=== PATIENT | female | born 1970 | race Caucasian/White ===

== ENCOUNTER 2017-02-17 12:05 | Inpatient (IN) | payer MEDICAID ==
[~2017-02-17] VITALS: Ht 167.6 cm; Wt 75.9 kg
[2017-02-17] MEDS ORDERED: ASPI-1159 PO (12:49)
[2017-02-17] MEDS ORDERED: LIP40 PO (12:49)
[2017-02-17] MEDS ORDERED: SODIUM CHLORIDE 0.9% 1,000 ML IV ONE (13:42)
[2017-02-17] MEDS ORDERED: LORAZEPAM 1MG TABLET PO ONE (14:15)
[2017-02-17 15:26] LABS: BASOPHILS % 0.9 % (0.0-2.0); HEMATOCRIT. 34.4 % (36.0-48.0); HEMOGLOBIN. 11.1 g/dL (12.0-16.0); LYMPHOCYTES % 26.6 % (20.0-50.0); MEAN CORPUSCULAR HEMOGLOBIN 25.2 pg (28.0-32.0); MEAN CORPUSCULAR VOLUME 77.8 fL (81.0-99.0); MEAN PLATELET VOLUME 8.4 fl (7.4-10.4); MONOCYTES % 8.6 % (2.0-8.0); NEUTROPHILS % 61.9 % (40.0-76.0); PLATELET 277 x1000/uL (130-400); RED BLOOD CELL COUNT 4.42 mill/uL (4.2-5.4); RED CELL DISTRIBUTION WIDTH 16.2 % (11.6-14.6)
[2017-02-17 15:33] LABS: CARBON DIOXIDE 25 mEq/L (21-32); CHLORIDE 107 mEq/L (98-107)
[2017-02-17 15:39] LABS: CREATINE KINASE MB FRACTION 2.7 ng/mL (0.5-3.6); TROPONIN I < 0.02 ng/mL (0.00-0.04)
[2017-02-17] MEDS ORDERED: ONDANSETRON HCL 4MG/2ML VIAL IV ONE (15:45)
[2017-02-17 15:50] LABS: PROTHROMBIN TIME 10.8 sec (9.4-11.6)
[2017-02-17] MEDS ORDERED: CLONIDINE 0.1MG TABLET PO PRN ×2 (16:08→17:15)
[2017-02-17] MEDS ORDERED: MAGNESIUM/ALUMINUM HYDROXIDE/SIMETHICONE 30ML UDC PO PRN (17:15)
[2017-02-17] MEDS ORDERED: ACETAMINOPHEN 325MG TABLET PO PRN (17:15)
[2017-02-17] MEDS ORDERED: ONDANSETRON HCL 4MG/2ML VIAL IV PRN (17:15)
[2017-02-17] MEDS ORDERED: IPRATROPIUM/ALBUTEROL 0.5-3(2.5)MG/3ML NEB INH PRN (17:15)
[2017-02-17 17:38] LABS: *AMPHETAMINES SCREEN URINE NEGATIVE (NEGATIVE); *BARBITURATES SCREEN URINE NEGATIVE (NEGATIVE); *BENZODIAZEPINES SCREEN URINE NEGATIVE (NEGATIVE); *COCAINE SCREEN URINE NEGATIVE (NEGATIVE); CANNABINOID URINE SCREEN NEGATIVE (NEGATIVE); METHADONE URINE SCREEN NEGATIVE (NEGATIVE); OPIATES URINE SCREEN NEGATIVE (NEGATIVE); PHENCYCLIDINE URINE SCREEN NEGATIVE (NEGATIVE)
[2017-02-17] MEDS: DIPHENHYDRAMINE 25MG CAPSULE PO PRN (19:41)
[2017-02-17] MEDS: HYDROCODONE/ACETAMINOPHEN 5/325MG TABLET PO PRN (19:42)
[2017-02-17 20:00] VITALS: BP_SYST 137; BP_SYST 142; BP_SYST 147; BP_DIAS 80; BP_DIAS 81; BP_DIAS 88
[2017-02-17] MEDS: AMLODIPINE 2.5MG TABLET PO SCH (20:13)
[2017-02-17] MEDS: SODIUM CHLORIDE 0.9% 1,000 ML IV SCH (20:14)
[2017-02-17] MEDS: DIPHENHYDRAMINE HCL/ZINC ACET 28 GM CREAM TOP PRN (21:19)
[2017-02-18] VITALS (7 sets, daily range): BP systolic 113–145; BP diastolic 56–94
[2017-02-18] MEDS: HYDROCODONE/ACETAMINOPHEN 5/325MG TABLET PO PRN ×5 (03:00→20:29)
[2017-02-18 05:57] LABS: CARBON DIOXIDE 26 mEq/L (21-32); CHLORIDE 108 mEq/L (98-107); CREATINE KINASE MB FRACTION 1.5 ng/mL (0.5-3.6); HDL CHOLESTEROL 52 mg/dL (40-59); TROPONIN I < 0.02 ng/mL (0.00-0.04)
[2017-02-18 06:02] LABS: CREATINE KINASE 192 IU/L (26-192); LDL CHOLESTEROL 72 mg/dL (5-100)
[2017-02-18 06:03] LABS: BASOPHILS % 0.7 % (0.0-2.0); EOSINOPHILS % 3.8 % (0.0-5.0); HEMOGLOBIN. 10.4 g/dL (12.0-16.0); LYMPHOCYTES % 42.8 % (20.0-50.0); MEAN CORPUSCULAR HEMOGLOBIN 25.5 pg (28.0-32.0); MEAN CORPUSCULAR VOLUME 78.4 fL (81.0-99.0); MEAN PLATELET VOLUME 8.8 fl (7.4-10.4); MONOCYTES % 8.9 % (2.0-8.0); NEUTROPHILS % 43.8 % (40.0-76.0); PLATELET 237 x1000/uL (130-400); RED BLOOD CELL COUNT 4.09 mill/uL (4.2-5.4); RED CELL DISTRIBUTION WIDTH 16.8 % (11.6-14.6)
[2017-02-18] MEDS: AMLODIPINE 2.5MG TABLET PO SCH ×2 (08:00→20:29)
[2017-02-18] MEDS: SODIUM CHLORIDE 0.9% 1,000 ML IV SCH ×2 (08:23→20:28)
[2017-02-18] MEDS: DIPHENHYDRAMINE 25MG CAPSULE PO PRN ×2 (08:23→20:28)
[2017-02-18] MEDS ORDERED: POTASSIUM CHLORIDE 20MEQ TABLET SR PO NR (12:15)
[2017-02-18] MEDS: MECLIZINE 25MG TABLET PO PRN ×2 (13:11→20:29)
[2017-02-18 14:59] LABS: TOTAL IRON BINDING CAPACITY 429 ug/dL (250-450)
[2017-02-18] MEDS: DIPHENHYDRAMINE HCL/ZINC ACET 28 GM CREAM TOP PRN (20:33)
[2017-02-19] VITALS (8 sets, daily range): BP systolic 106–143; BP diastolic 64–96
[2017-02-19 06:05] LABS: BASOPHILS % 0.9 % (0.0-2.0); EOSINOPHILS % 5.6 % (0.0-5.0); HEMATOCRIT. 35.5 % (36.0-48.0); HEMOGLOBIN. 11.3 g/dL (12.0-16.0); LYMPHOCYTES % 42.2 % (20.0-50.0); MEAN CORPUSCULAR HEMOGLOBIN 25.4 pg (28.0-32.0); MEAN CORPUSCULAR VOLUME 79.7 fL (81.0-99.0); MEAN PLATELET VOLUME 8.9 fl (7.4-10.4); MONOCYTES % 8.1 % (2.0-8.0); NEUTROPHILS % 43.2 % (40.0-76.0); PLATELET 257 x1000/uL (130-400); RED BLOOD CELL COUNT 4.46 mill/uL (4.2-5.4); RED CELL DISTRIBUTION WIDTH 16.6 % (11.6-14.6)
[2017-02-19 06:30] LABS: CHLORIDE 104 mEq/L (98-107)
[2017-02-19 06:43] LABS: CARBON DIOXIDE 26 mEq/L (21-32); TROPONIN I < 0.02 ng/mL (0.00-0.04)
[2017-02-19] MEDS: AMLODIPINE 2.5MG TABLET PO SCH ×2 (09:00→21:00)
[2017-02-19] MEDS: SODIUM CHLORIDE 0.9% 1,000 ML IV SCH ×2 (09:22→21:37)
[2017-02-19] MEDS: HYDROCODONE/ACETAMINOPHEN 5/325MG TABLET PO PRN ×3 (10:13→22:40)
[2017-02-19] MEDS: DIPHENHYDRAMINE 25MG CAPSULE PO PRN ×2 (10:13→18:05)
[2017-02-19] MEDS: MECLIZINE 25MG TABLET PO PRN ×2 (12:09→21:52)
[2017-02-20] VITALS: BP 137/88
[2017-02-20 04:00] VITALS: BP 140/95
[2017-02-20] MEDS: DIPHENHYDRAMINE HCL/ZINC ACET 28 GM CREAM TOP PRN (05:03)
[2017-02-20] MEDS: HYDROCODONE/ACETAMINOPHEN 5/325MG TABLET PO PRN ×3 (05:05→19:53)
[2017-02-20] MEDS: DIPHENHYDRAMINE 25MG CAPSULE PO PRN ×3 (05:05→19:53)
[2017-02-20 08:00] VITALS: BP 109/70
[2017-02-20] MEDS: OMEPRAZOLE 20MG CAPSULE EXTENDED RELEASE PO SCH (08:36)
[2017-02-20] MEDS: AMLODIPINE 2.5MG TABLET PO SCH ×2 (09:00→20:34)
[2017-02-20 11:09] VITALS: BP 100/54
[2017-02-20 16:00] VITALS: BP_SYST 110; BP_SYST 118; BP_SYST 130; BP_DIAS 66; BP_DIAS 71; BP_DIAS 83
[2017-02-20] MEDS: SODIUM CHLORIDE 0.9% 1,000 ML IV SCH ×2 (16:58→21:30)
[2017-02-20 20:00] VITALS: BP_SYST 118; BP_SYST 123; BP_SYST 128; BP_DIAS 68; BP_DIAS 76; BP_DIAS 81
[2017-02-20] MEDS: MECLIZINE 25MG TABLET PO PRN (21:32)
[2017-02-21] VITALS: BP 104/65
[2017-02-21] MEDS: HYDROCODONE/ACETAMINOPHEN 5/325MG TABLET PO PRN ×3 (00:24→13:37)
[2017-02-21 04:00] VITALS: BP 122/86
[2017-02-21] MEDS: SODIUM CHLORIDE 0.9% 1,000 ML IV SCH (06:00)
[2017-02-21] MEDS: OMEPRAZOLE 20MG CAPSULE EXTENDED RELEASE PO SCH (07:53)
[2017-02-21 08:00] VITALS: BP 120/78
[2017-02-21] MEDS: DIPHENHYDRAMINE 25MG CAPSULE PO PRN (08:00)
[2017-02-21] MEDS: MECLIZINE 25MG TABLET PO PRN (08:46)
[2017-02-21] MEDS: DIPHENHYDRAMINE HCL/ZINC ACET 28 GM CREAM TOP PRN (08:46)
[2017-02-21 12:18] VITALS: BP 145/90
[2017-02-21] MEDS: AMLODIPINE 2.5MG TABLET PO SCH (12:18)
[2017-02-21 15:10] VITALS: BP 143/82
== END 2017-02-21 17:40 | disposition home or self-care (01) | DRG 253 ==
LOC: EDBEDREQ 13:46 → ER 13:55 → 7WST 15:39 → EDBEDREQ 15:41 → ENRESERV 16:27 → CANRESERV 16:27 → ENRESERV 16:46
PROVIDERS: ADMIT Internal Medicine; ATTEND Internal Medicine
DX: K92.2 Gastrointestinal hemorrhage, unspecified (principal); G45.9 Transient cerebral ischemic attack, unspecified; I10 Essential (primary) hypertension; Z80.8 Family history of malignant neoplasm of other organs or systems; E78.5 Hyperlipidemia, unspecified; E87.6 Hypokalemia; F41.1 Generalized anxiety disorder; K64.9 Unspecified hemorrhoids; D50.9 Iron deficiency anemia, unspecified; R21 Rash and other nonspecific skin eruption; E78.00 Pure hypercholesterolemia, unspecified; M51.36 Other intervertebral disc degeneration, lumbar region; F48.8 Other specified nonpsychotic mental disorders; M47.9 Spondylosis, unspecified; K59.00 Constipation, unspecified; M51.9 Unspecified thoracic, thoracolumbar and lumbosacral intervertebral disc disorder; E83.51 Hypocalcemia; I95.1 Orthostatic hypotension; K52.9 Noninfective gastroenteritis and colitis, unspecified; F32.9 Major depressive disorder, single episode, unspecified; G89.29 Other chronic pain; M54.5 Low back pain; Z79.899 Other long term (current) drug therapy; Z79.82 Long term (current) use of aspirin; Z80.3 Family history of malignant neoplasm of breast
CPT/HCPCS: 36415; 70450; 71010; 80048; 80053; 80061; 80305; 81025; 82270; 82550; 82553; 82728; 83540; 83550; 83735; 83880; 84443; 84484; 85025; 85379; 85610; 85730; 87015; 87045; 87427; 87449; 93005; 93306; 93880; 93970; 96361; 96374; 97162; 99285; J2405; J7030; J7620; J8597; Q0163

== ENCOUNTER 2018-12-29 02:51 | Emergency (ER) | payer MEDICAID ==
[~2018-12-29] VITALS: Ht 167.6 cm; Wt 91.0 kg
[~2018-12-29 02:51] MED LIST: ASPI-1393 PO; LIP40 PO
[2018-12-29 04:25] LABS: BASOPHILS % 0.9 % (0.0-2.0); EOSINOPHILS % 2.5 % (0.0-5.0); HEMATOCRIT. 31.9 % (36.0-48.0); HEMOGLOBIN. 10.4 g/dL (12.0-16.0); LYMPHOCYTES % 29.3 % (20.0-50.0); MEAN CORPUSCULAR HEMOGLOBIN 24.4 pg (28.0-32.0); MEAN CORPUSCULAR VOLUME 74.9 fL (81.0-99.0); MEAN PLATELET VOLUME 8.2 fl (7.4-10.4); MONOCYTES % 7.1 % (2.0-8.0); NEUTROPHILS % 60.2 % (40.0-76.0); PLATELET 271 x1000/uL (130-400); RED BLOOD CELL COUNT 4.25 mill/uL (4.2-5.4); RED CELL DISTRIBUTION WIDTH 17.6 % (11.6-14.6)
[2018-12-29 04:31] LABS: CHLORIDE 110 mEq/L (98-107)
[2018-12-29 04:53] VITALS: BP 147/90
[2018-12-29 04:58] LABS: CLARITY URINE CLEAR (CLEAR); COLOR URINE YELLOW (YELLOW); KETONES URINE NEGATIVE (NEGATIVE); LEUKOCYTE ESTERASE URINE NEGATIVE (NEGATIVE); NITRITE URINE NEGATIVE (NEGATIVE); OCCULT BLOOD URINE NEGATIVE (NEGATIVE); PROTEIN URINE NEGATIVE (NEGATIVE); SPECIFIC GRAVITY URINE 1.008 (1.005-1.030); UROBILINOGEN URINE 0.2 E.U./dL (0.2-1.0)
[2018-12-29] MEDS ORDERED: POTASSIUM BICARB/CIT ACID 25 MEQ TABLET.EFF PO ONE (05:15)
[2018-12-29 05:16] LABS: *AMPHETAMINES SCREEN URINE NEGATIVE (NEGATIVE); CANNABINOID URINE SCREEN NEGATIVE (NEGATIVE); PHENCYCLIDINE URINE SCREEN NEGATIVE (NEGATIVE)
[2018-12-29 05:17] LABS: *BARBITURATES SCREEN URINE NEGATIVE (NEGATIVE); *BENZODIAZEPINES SCREEN URINE NEGATIVE (NEGATIVE); *COCAINE SCREEN URINE NEGATIVE (NEGATIVE); METHADONE URINE SCREEN NEGATIVE (NEGATIVE)
[2018-12-29 05:18] LABS: OPIATES URINE SCREEN PRESUMTIVE POSITIVE (NEGATIVE)
[2018-12-29] MEDS ORDERED: DOXY150T MT (12:46)
[2018-12-29] MEDS ORDERED: ALPR1TAB2 PO (12:46)
[2018-12-29] MEDS ORDERED: DULO30CA51 PO (12:46)
[2018-12-29] MEDS ORDERED: GABA-531 PO (12:46)
[2018-12-29] MEDS ORDERED: TOP100 PO (12:46)
[2018-12-29] MEDS ORDERED: DICL50TA9 PO (12:46)
[2018-12-29] MEDS ORDERED: TRAM50TA3 PO (12:46)
[2018-12-29] MEDS ORDERED: LIP40 PO (12:46)
[2018-12-29] MEDS ORDERED: TRAZ-251 PO (12:49)
== END 2018-12-29 05:58 | disposition home or self-care (01) ==
LOC: ER 02:51
DX: R55 Syncope and collapse (principal); R53.1 Weakness; E87.6 Hypokalemia; I10 Essential (primary) hypertension; F41.8 Other specified anxiety disorders; G89.29 Other chronic pain; Z79.899 Other long term (current) drug therapy
CPT/HCPCS: 36415; 71045; 80305; 81025; 84484; 93005; 99284

== ENCOUNTER 2018-12-29 06:58 | Inpatient (IN) | payer MEDICAID ==
[~2018-12-29] VITALS: Ht 167.6 cm; Wt 86.2 kg
[2018-12-29 09:21] LABS: CHLORIDE 108 mEq/L (98-107)
[2018-12-29 09:28] LABS: BASOPHILS % 0.6 % (0.0-2.0); EOSINOPHILS % 2.3 % (0.0-5.0); HEMATOCRIT. 33.2 % (36.0-48.0); HEMOGLOBIN. 10.6 g/dL (12.0-16.0); LYMPHOCYTES % 29.8 % (20.0-50.0); MEAN CORPUSCULAR HEMOGLOBIN 24.1 pg (28.0-32.0); MEAN CORPUSCULAR VOLUME 75.1 fL (81.0-99.0); MEAN PLATELET VOLUME 8.4 fl (7.4-10.4); MONOCYTES % 5.9 % (2.0-8.0); NEUTROPHILS % 61.4 % (40.0-76.0); PLATELET 268 x1000/uL (130-400); RED BLOOD CELL COUNT 4.42 mill/uL (4.2-5.4); RED CELL DISTRIBUTION WIDTH 17.5 % (11.6-14.6)
[2018-12-29] MEDS ORDERED: MAGNESIUM/ALUMINUM HYDROXIDE/SIMETHICONE 30ML UDC PO PRN (10:00)
[2018-12-29] MEDS ORDERED: CLONIDINE 0.1MG TABLET PO PRN ×2 (10:00→15:00)
[2018-12-29] MEDS ORDERED: GUAIFENESIN 200MG/10ML SUGAR FREE UDC PO PRN (10:00)
[2018-12-29] MEDS ORDERED: ACETAMINOPHEN 325MG TABLET PO PRN (10:00)
[2018-12-29] MEDS ORDERED: DIPHENHYDRAMINE 50MG/ML VIAL IV PRN (10:00)
[2018-12-29] MEDS ORDERED: DOCUSATE SODIUM 100MG CAPSULE PO PRN (10:00)
[2018-12-29] MEDS ORDERED: HYDROCODONE/ACETAMINOPHEN 5/325MG TABLET PO PRN (10:00)
[2018-12-29] MEDS ORDERED: IPRATROPIUM/ALBUTEROL 0.5-3(2.5)MG/3ML NEB INH PRN (10:00)
[2018-12-29] MEDS ORDERED: ONDANSETRON HCL 4MG/2ML INJ IV PRN (10:00)
[2018-12-29 12:33] VITALS: BP 140/104
[2018-12-29] MEDS ORDERED: TOP100 PO (12:46)
[2018-12-29] MEDS ORDERED: ALPR1TAB2 PO (12:46)
[2018-12-29] MEDS ORDERED: TRAM50TA3 PO (12:46)
[2018-12-29] MEDS ORDERED: GABA-531 PO (12:46)
[2018-12-29] MEDS ORDERED: DOXY150T MT (12:46)
[2018-12-29] MEDS ORDERED: LIP40 PO (12:46)
[2018-12-29] MEDS ORDERED: DICL50TA9 PO (12:46)
[2018-12-29] MEDS ORDERED: DULO30CA51 PO (12:46)
[2018-12-29] MEDS ORDERED: TRAZ-251 PO (12:49)
[2018-12-29] MEDS ORDERED: ENOXAPARIN 40MG/0.4ML SYR SUBCUT SCH (14:00)
[2018-12-29] MEDS ORDERED: TOPIRAMATE 100MG TABLET PO SCH (15:00)
[2018-12-29] MEDS ORDERED: DULOXETINE HCL 30MG DR CAPSULE PO SCH (15:00)
[2018-12-29] MEDS ORDERED: ALPRAZOLAM 0.5 MG TABLET PO PRN (15:00)
[2018-12-29] MEDS ORDERED: ASPIRIN 81MG TABLET PO SCH (15:00)
[2018-12-29 16:33] VITALS: BP 153/111
[2018-12-29] MEDS ORDERED: [UNRECOGNIZED DRUG - REMARK] PO SCH (21:00)
[2018-12-29] MEDS ORDERED: TRAZODONE HCL 50MG TABLET PO SCH (21:00)
[2018-12-29] MEDS ORDERED: AMLODIPINE 2.5MG TABLET PO SCH (21:00)
[2018-12-29] MEDS ORDERED: ATORVASTATIN CALCIUM 40MG TABLET PO SCH (21:00)
[2018-12-29] MEDS ORDERED: GABAPENTIN 300MG CAPSULE PO SCH (22:00)
== END 2018-12-29 18:00 | disposition left against medical advice (07) | DRG 204 ==
LOC: ER 07:11 → 8WST 09:57 → ENRESERV 11:13
PROVIDERS: ADMIT Internal Medicine; ATTEND Internal Medicine
DX: R55 Syncope and collapse (principal); G45.9 Transient cerebral ischemic attack, unspecified; D50.9 Iron deficiency anemia, unspecified; E78.00 Pure hypercholesterolemia, unspecified; E78.1 Pure hyperglyceridemia; E78.5 Hyperlipidemia, unspecified; F41.9 Anxiety disorder, unspecified; G40.909 Epilepsy, unspecified, not intractable, without status epilepticus; G43.909 Migraine, unspecified, not intractable, without status migrainosus; I10 Essential (primary) hypertension; G89.29 Other chronic pain; M47.9 Spondylosis, unspecified; M51.26 Other intervertebral disc displacement, lumbar region; Z79.899 Other long term (current) drug therapy; Z98.51 Tubal ligation status; Z98.1 Arthrodesis status
CPT/HCPCS: 36415; 71045; 82550; 82553; 83735; 83880; 84100; 84484; 93005; 93306; 93970; 96374; 97162; 99285; J1650

== ENCOUNTER 2018-12-30 11:45 | Inpatient (IN) | payer MEDICAID ==
[~2018-12-30] VITALS: Ht 167.6 cm; Wt 83.9 kg
[~2018-12-30 11:45] MED LIST changes: +ALPR1TAB2 PO; +DICL50TA9 PO; +DOXY150T MT; +DULO30CA51 PO; +GABA-531 PO; +TOP100 PO; +TRAM50TA3 PO; +TRAZ-251 PO
[2018-12-30] MEDS ORDERED: MECLIZINE 25MG TABLET PO ONE (12:45)
[2018-12-30] MEDS ORDERED: SODIUM CHLORIDE 0.9% 1,000 ML IV ONE (12:57)
[2018-12-30 13:14] LABS: EOSINOPHILS % 2.6 % (0.0-5.0); HEMATOCRIT. 33.5 % (36.0-48.0); HEMOGLOBIN. 10.7 g/dL (12.0-16.0); LYMPHOCYTES % 27.5 % (20.0-50.0); MEAN CORPUSCULAR VOLUME 75.2 fL (81.0-99.0); MEAN PLATELET VOLUME 8.4 fl (7.4-10.4); NEUTROPHILS % 59.9 % (40.0-76.0); PLATELET 267 x1000/uL (130-400); RED BLOOD CELL COUNT 4.45 mill/uL (4.2-5.4); RED CELL DISTRIBUTION WIDTH 17.8 % (11.6-14.6)
[2018-12-30 13:21] LABS: CHLORIDE 112 mEq/L (98-107)
[2018-12-30 13:23] LABS: PROTHROMBIN TIME 10.4 sec (9.6-11.0)
[2018-12-30 13:27] LABS: HCG SCREEN NEGATIVE
[2018-12-30 14:00] VITALS: BP 170/101
[2018-12-30 14:05] VITALS: BP 150/105
[2018-12-30 14:16] LABS: *AMPHETAMINES SCREEN URINE NEGATIVE (NEGATIVE); *BARBITURATES SCREEN URINE NEGATIVE (NEGATIVE); *COCAINE SCREEN URINE NEGATIVE (NEGATIVE); METHADONE URINE SCREEN NEGATIVE (NEGATIVE); OPIATES URINE SCREEN NEGATIVE (NEGATIVE); PHENCYCLIDINE URINE SCREEN NEGATIVE (NEGATIVE)
[2018-12-30 14:17] LABS: CANNABINOID URINE SCREEN NEGATIVE (NEGATIVE)
[2018-12-30 14:18] LABS: *BENZODIAZEPINES SCREEN URINE PRESUMTIVE POSITIVE (NEGATIVE)
[2018-12-30 16:05] VITALS: BP 150/105
[2018-12-30] MEDS ORDERED: MECLIZINE 25MG TABLET PO PRN (17:00)
[2018-12-30] MEDS ORDERED: ACETAMINOPHEN 325MG TABLET PO PRN (17:00)
[2018-12-30] MEDS ORDERED: ONDANSETRON HCL 4MG/2ML INJ IV PRN (17:00)
[2018-12-30 20:00] VITALS: BP 140/93
[2018-12-30] MEDS ORDERED: ALPRAZOLAM 0.25 MG TABLET PO PRN (20:30)
[2018-12-30] MEDS: ALPRAZOLAM 0.5 MG TABLET PO PRN (21:13)
[2018-12-30] MEDS: GABAPENTIN 300MG CAPSULE PO SCH (21:14)
[2018-12-30] MEDS: ATORVASTATIN CALCIUM 40MG TABLET PO SCH (21:14)
[2018-12-30] MEDS: TRAZODONE HCL 50MG TABLET PO SCH (21:48)
[2018-12-31] VITALS (7 sets, daily range): BP systolic 99–176; BP diastolic 40–110
[2018-12-31] MEDS: GABAPENTIN 300MG CAPSULE PO SCH ×3 (06:55→21:29)
[2018-12-31 07:37] LABS: BASOPHILS % 0.7 % (0.0-2.0); EOSINOPHILS % 4.2 % (0.0-5.0); HEMATOCRIT. 30.9 % (36.0-48.0); HEMOGLOBIN. 10.1 g/dL (12.0-16.0); LYMPHOCYTES % 41.2 % (20.0-50.0); MEAN CORPUSCULAR HEMOGLOBIN 24.5 pg (28.0-32.0); MEAN CORPUSCULAR VOLUME 74.7 fL (81.0-99.0); MEAN PLATELET VOLUME 8.7 fl (7.4-10.4); MONOCYTES % 7.1 % (2.0-8.0); NEUTROPHILS % 46.8 % (40.0-76.0); PLATELET 254 x1000/uL (130-400); RED BLOOD CELL COUNT 4.14 mill/uL (4.2-5.4); RED CELL DISTRIBUTION WIDTH 17.7 % (11.6-14.6)
[2018-12-31 08:12] LABS: CLARITY URINE CLEAR (CLEAR); COLOR URINE YELLOW (YELLOW); KETONES URINE NEGATIVE (NEGATIVE); LEUKOCYTE ESTERASE URINE NEGATIVE (NEGATIVE); NITRITE URINE NEGATIVE (NEGATIVE); OCCULT BLOOD URINE NEGATIVE (NEGATIVE); PROTEIN URINE NEGATIVE (NEGATIVE); SPECIFIC GRAVITY URINE 1.007 (1.005-1.030); UROBILINOGEN URINE 0.2 E.U./dL (0.2-1.0)
[2018-12-31] MEDS: ASPIRIN 81MG TABLET PO SCH (09:42)
[2018-12-31] MEDS: DULOXETINE HCL 30MG DR CAPSULE PO SCH (09:43)
[2018-12-31] MEDS: TOPIRAMATE 100MG TABLET PO SCH (09:43)
[2018-12-31] MEDS: ALPRAZOLAM 0.5 MG TABLET PO PRN ×2 (10:11→18:51)
[2018-12-31] MEDS: AMLODIPINE 2.5MG TABLET PO SCH ×2 (13:00→21:00)
[2018-12-31] MEDS: HYDROCODONE/ACETAMINOPHEN 10/325MG TABLET PO PRN (16:35)
[2018-12-31] MEDS: TRAZODONE HCL 50MG TABLET PO SCH (21:29)
[2018-12-31] MEDS: ATORVASTATIN CALCIUM 40MG TABLET PO SCH (21:29)
[2019-01-01] VITALS: BP 116/80
[2019-01-01 04:00] VITALS: BP 106/70
[2019-01-01] MEDS: GABAPENTIN 300MG CAPSULE PO SCH ×3 (06:41→21:26)
[2019-01-01 07:35] LABS: CHLORIDE 113 mEq/L (98-107)
[2019-01-01 07:45] LABS: BASOPHILS % 0.9 % (0.0-2.0); HEMOGLOBIN. 10.7 g/dL (12.0-16.0); LYMPHOCYTES % 37.5 % (20.0-50.0); MEAN CORPUSCULAR HEMOGLOBIN 24.2 pg (28.0-32.0); MEAN CORPUSCULAR VOLUME 74.7 fL (81.0-99.0); MEAN PLATELET VOLUME 8.6 fl (7.4-10.4); MONOCYTES % 7.5 % (2.0-8.0); NEUTROPHILS % 50.1 % (40.0-76.0); PLATELET 246 x1000/uL (130-400); RED BLOOD CELL COUNT 4.43 mill/uL (4.2-5.4); RED CELL DISTRIBUTION WIDTH 17.5 % (11.6-14.6)
[2019-01-01 07:52] LABS: CREATINE KINASE MB FRACTION < 1.0 ng/mL (0.5-3.6)
[2019-01-01 07:53] LABS: HDL CHOLESTEROL 38 mg/dL (40-59); LDL CHOLESTEROL 79 mg/dL (5-100)
[2019-01-01 08:00] VITALS: BP 105/64
[2019-01-01 08:01] LABS: CREATINE KINASE 55 IU/L (26-192)
[2019-01-01 08:28] LABS: *AMPHETAMINES SCREEN URINE NEGATIVE (NEGATIVE); *BARBITURATES SCREEN URINE NEGATIVE (NEGATIVE); *COCAINE SCREEN URINE NEGATIVE (NEGATIVE); METHADONE URINE SCREEN NEGATIVE (NEGATIVE); OPIATES URINE SCREEN NEGATIVE (NEGATIVE)
[2019-01-01 08:29] LABS: *BENZODIAZEPINES SCREEN URINE PRESUMTIVE POSITIVE (NEGATIVE); CANNABINOID URINE SCREEN NEGATIVE (NEGATIVE); PHENCYCLIDINE URINE SCREEN NEGATIVE (NEGATIVE)
[2019-01-01] MEDS: AMLODIPINE 2.5MG TABLET PO SCH ×2 (09:00→21:00)
[2019-01-01] MEDS: TOPIRAMATE 100MG TABLET PO SCH (09:40)
[2019-01-01] MEDS: DULOXETINE HCL 30MG DR CAPSULE PO SCH (09:40)
[2019-01-01] MEDS: ASPIRIN 81MG TABLET PO SCH (09:40)
[2019-01-01] MEDS: HYDROCODONE/ACETAMINOPHEN 10/325MG TABLET PO PRN ×2 (09:41→14:03)
[2019-01-01 12:00] VITALS: BP_SYST 106; BP_SYST 119; BP_SYST 123; BP_DIAS 70; BP_DIAS 77; BP_DIAS 84
[2019-01-01] MEDS: MECLIZINE 25MG TABLET PO PRN (14:57)
[2019-01-01] MEDS: LACTULOSE 20G/30ML UDC PO NR ×2 (15:22→17:00)
[2019-01-01 16:00] VITALS: BP 109/74
[2019-01-01] MEDS: DOCUSATE SODIUM 250MG CAPSULE PO SCH (17:08)
[2019-01-01 20:00] VITALS: BP 121/70
[2019-01-01] MEDS: ATORVASTATIN CALCIUM 40MG TABLET PO SCH (21:26)
[2019-01-01] MEDS: TRAZODONE HCL 50MG TABLET PO SCH (21:26)
[2019-01-01] MEDS: ALPRAZOLAM 0.5 MG TABLET PO PRN (22:21)
[2019-01-02] VITALS: BP_SYST 112; BP_SYST 121; BP_SYST 136; BP_DIAS 67; BP_DIAS 79; BP_DIAS 81
[2019-01-02 04:00] VITALS: BP 106/70
[2019-01-02] MEDS: GABAPENTIN 300MG CAPSULE PO SCH (07:14)
[2019-01-02 08:00] VITALS: BP 94/45
[2019-01-02] MEDS: AMLODIPINE 2.5MG TABLET PO SCH (09:00)
[2019-01-02] MEDS ORDERED: LACTULOSE 20G/30ML UDC PO NR (09:45)
[2019-01-02] MEDS ORDERED: NA PHOS,M-B/NA PHOS,DI-BA ENEMA 118ML PR NR (09:45)
[2019-01-02] MEDS: DOCUSATE SODIUM 250MG CAPSULE PO SCH (09:54)
[2019-01-02] MEDS: DULOXETINE HCL 30MG DR CAPSULE PO SCH (09:54)
[2019-01-02] MEDS: ASPIRIN 81MG TABLET PO SCH (09:54)
[2019-01-02] MEDS: TOPIRAMATE 100MG TABLET PO SCH (09:55)
[2019-01-02] MEDS: MECLIZINE 25MG TABLET PO PRN (10:10)
[2019-01-02] MEDS ORDERED: MECLIZINE 25MG TABLET PO NR (11:15)
[2019-01-02 12:00] VITALS: BP 93/63
[2019-01-02 13:39] VITALS: BP 95/63
== END 2019-01-02 15:30 | disposition home or self-care (01) | DRG 48 ==
LOC: ER 12:46 → 5WST 13:48 → EDBEDREQTM 14:00 → EDBEDREQ 14:00 → ENRESERV 14:55
PROVIDERS: ADMIT Internal Medicine; ATTEND Internal Medicine
DX: G90.8 Other disorders of autonomic nervous system (principal); E44.1 Mild protein-calorie malnutrition; E87.8 Other disorders of electrolyte and fluid balance, not elsewhere classified; I10 Essential (primary) hypertension; E66.9 Obesity, unspecified; E78.5 Hyperlipidemia, unspecified; Z86.73 Personal history of transient ischemic attack (TIA), and cerebral infarction without residual deficits; G62.9 Polyneuropathy, unspecified; D64.9 Anemia, unspecified; M51.26 Other intervertebral disc displacement, lumbar region; G43.909 Migraine, unspecified, not intractable, without status migrainosus; F43.10 Post-traumatic stress disorder, unspecified; F41.8 Other specified anxiety disorders; G89.29 Other chronic pain; E78.00 Pure hypercholesterolemia, unspecified; K64.9 Unspecified hemorrhoids; F32.9 Major depressive disorder, single episode, unspecified; Z91.018 Allergy to other foods; Z68.29 Body mass index [BMI] 29.0-29.9, adult; Z79.899 Other long term (current) drug therapy; Z80.3 Family history of malignant neoplasm of breast; Z71.89 Other specified counseling; Z79.82 Long term (current) use of aspirin
CPT/HCPCS: 36415; 71045; 80048; 80061; 80305; 82550; 82553; 83735; 83880; 84443; 84484; 84703; 93005; 93880; 93970; 97116; 97162; 99285; C1893; J7030; J8597

== ENCOUNTER 2021-05-11 17:37 | Emergency (ER) | payer MEDICAID ==
[~2021-05-11] VITALS: Ht 167.6 cm; Wt 73.0 kg
[~2021-05-11 17:37] MED LIST changes: -ASPI-1393 PO; +ASPI-1497 PO; -DOXY150T MT; -DULO30CA51 PO; +DULO30CA52 PO; -GABA-531 PO; +GABA-532 PO; +HYDR-4001 MT; +METH-773 MT; +TRAM50TA3 MT; -TRAM50TA3 PO; -TRAZ-251 PO
[2021-05-11] MEDS ORDERED: ONDANSETRON HCL 4MG/2ML INJ IV STA (18:05)
[2021-05-11] MEDS ORDERED: SODIUM CHLORIDE 0.9% 1,000 ML IV ONE (18:15)
[2021-05-11 18:39] LABS: EOSINOPHILS % 3.5 % (0.0-5.0); HEMATOCRIT. 31.1 % (36.0-48.0); HEMOGLOBIN. 9.9 g/dL (12.0-16.0); LYMPHOCYTES % 32.2 % (20.0-50.0); MEAN CORPUSCULAR HEMOGLOBIN 22.5 pg (28.0-32.0); MEAN CORPUSCULAR VOLUME 70.6 fL (81.0-99.0); MEAN PLATELET VOLUME 7.6 fl (7.4-10.4); MONOCYTES % 5.9 % (2.0-8.0); NEUTROPHILS % 57.4 % (40.0-76.0); PLATELET 439 x1000/uL (130-400); RED CELL DISTRIBUTION WIDTH 18.6 % (11.6-14.6)
[2021-05-11 18:51] LABS: CHLORIDE 107 mEq/L (98-107)
[2021-05-11 18:54] LABS: HCG SCREEN NEGATIVE
[2021-05-11 18:55] LABS: ETHANOL BLOOD 200 mg/dL
[2021-05-11] MEDS ORDERED: LORAZEPAM 2MG/ML CPJ IM STA (19:45)
[2021-05-11] MEDS ORDERED: MORPHINE SULFATE 4 MG/ML CPJ (NOT FOR IM USE) IV ONE (19:45)
[2021-05-11] MEDS ORDERED: PANTOPRAZOLE SODIUM 40 MG/VIAL IV ONE (19:45)
[2021-05-11 21:56] LABS: CLARITY URINE CLEAR (CLEAR); COLOR URINE YELLOW (YELLOW); KETONES URINE NEGATIVE (NEGATIVE); LEUKOCYTE ESTERASE URINE NEGATIVE (NEGATIVE); NITRITE URINE NEGATIVE (NEGATIVE); OCCULT BLOOD URINE NEGATIVE (NEGATIVE); PH URINE 6.5 (4.5-8.0); PROTEIN URINE NEGATIVE (NEGATIVE); SPECIFIC GRAVITY URINE 1.015 (1.005-1.030); UROBILINOGEN URINE 0.2 E.U./dL (0.2-1.0)
[2021-05-11] MEDS ORDERED: KETOROLAC 15MG/ML VIAL IV ONE (23:15)
[2021-05-11] MEDS ORDERED: FAMO-135 PO (23:23)
[2021-05-11] MEDS ORDERED: ONDA4TAB11 PO (23:23)
[2021-05-11 23:31] VITALS: BP 137/84
== END 2021-05-11 23:45 | disposition home or self-care (01) ==
LOC: ER 17:37 → CANBEDREQ 05-12 04:29
DX: R10.13 Epigastric pain (principal); R51.9 Headache, unspecified; D49.6 Neoplasm of unspecified behavior of brain; N85.2 Hypertrophy of uterus; F10.129 Alcohol abuse with intoxication, unspecified; F41.9 Anxiety disorder, unspecified; Y90.7 Blood alcohol level of 200-239 mg/100 ml; D64.9 Anemia, unspecified; M47.896 Other spondylosis, lumbar region
CPT/HCPCS: 36415; 70450; 74176; 80053; 80320; 81003; 83690; 84703; 85025; 87086; 93005; 96361; 96372; 96374; 96375; 99285; C9113; J1885; J2060; J2270; J2405; J7030; G0480

== ENCOUNTER 2021-07-18 01:59 | Emergency (ER) | payer MEDICAID, OTHER ==
[~2021-07-18] VITALS: Ht 167.6 cm; Wt 91.0 kg
[~2021-07-18 01:59] MED LIST changes: +FAMO-135 PO; +ONDA4TAB11 PO
[2021-07-18] MEDS ORDERED: ONDANSETRON HCL 4MG/2ML INJ IV STA (02:50)
[2021-07-18] MEDS ORDERED: MORPHINE SULFATE 4 MG/ML CPJ (NOT FOR IM USE) IV STA (02:50)
[2021-07-18] MEDS ORDERED: SODIUM CHLORIDE 0.9% 1,000 ML IV ONE (03:00)
[2021-07-18 03:29] LABS: BASOPHILS % 1.1 % (0.0-2.0); EOSINOPHILS % 0.6 % (0.0-5.0); HEMATOCRIT. 29.2 % (36.0-48.0); HEMOGLOBIN. 9.4 g/dL (12.0-16.0); LYMPHOCYTES % 14.2 % (20.0-50.0); MEAN CORPUSCULAR HEMOGLOBIN 21.3 pg (28.0-32.0); MEAN CORPUSCULAR VOLUME 66.5 fL (81.0-99.0); MEAN PLATELET VOLUME 8.2 fl (7.4-10.4); MONOCYTES % 6.9 % (2.0-8.0); NEUTROPHILS % 77.2 % (40.0-76.0); PLATELET 427 x1000/uL (130-400); RED BLOOD CELL COUNT 4.39 mill/uL (4.2-5.4); RED CELL DISTRIBUTION WIDTH 17.2 % (11.6-14.6)
[2021-07-18] MEDS ORDERED: IBUPROFEN 600MG TABLET PO ONE (04:45)
[2021-07-18 06:56] LABS: PLATELET ESTIMATE INCREASED
[2021-07-18 06:58] VITALS: BP 138/75
== END 2021-07-18 07:30 | disposition home or self-care (01) ==
LOC: ER 01:59
DX: S06.0X9A Concussion with loss of consciousness of unspecified duration, initial encounter (principal); S00.03XA Contusion of scalp, initial encounter; S63.206A Unspecified subluxation of right little finger, initial encounter; Z91.018 Allergy to other foods; Y04.0XXA Assault by unarmed brawl or fight, initial encounter; Y93.89 Activity, other specified; Y92.488 Other paved roadways as the place of occurrence of the external cause
CPT/HCPCS: 36415; 70450; 71045; 73130; 74176; 80048; 85025; 96361; 96374; 96375; 99291; J2270; J2405

== ENCOUNTER 2021-08-02 21:51 | Emergency (ER) | payer OTHER ==
[~2021-08-02] VITALS: Ht 167.6 cm; Wt 88.0 kg
[2021-08-02] MEDS ORDERED: MAGNESIUM/ALUMINUM HYDROXIDE/SIMETHICONE 30ML UDC PO STA (22:12)
[2021-08-02] MEDS ORDERED: VISCOUS LIDOCAINE 2% 15 ML UDC PO STA (22:12)
[2021-08-02] MEDS ORDERED: ONDANSETRON 4MG ODT PO ONE (22:30)
[2021-08-02 23:59] LABS: BASOPHILS % 0.8 % (0.0-2.0); EOSINOPHILS % 5.3 % (0.0-5.0); HEMATOCRIT. 32.1 % (36.0-48.0); HEMOGLOBIN. 9.9 g/dL (12.0-16.0); LYMPHOCYTES % 30.9 % (20.0-50.0); MEAN CORPUSCULAR HEMOGLOBIN 20.4 pg (28.0-32.0); MEAN CORPUSCULAR VOLUME 66.2 fL (81.0-99.0); MONOCYTES % 6.6 % (2.0-8.0); NEUTROPHILS % 56.4 % (40.0-76.0); PLATELET 315 x1000/uL (130-400); RED BLOOD CELL COUNT 4.85 mill/uL (4.2-5.4); RED CELL DISTRIBUTION WIDTH 17.5 % (11.6-14.6)
[2021-08-03 00:13] LABS: CHLORIDE 109 mEq/L (98-107)
[2021-08-03] MEDS ORDERED: ONDA4TAB5 MT (00:32)
[2021-08-03] MEDS ORDERED: SUCR1TAB30 MT (00:32)
[2021-08-03 00:57] VITALS: BP 129/96
== END 2021-08-03 01:07 | disposition home or self-care (01) ==
LOC: ER 21:51
DX: K29.70 Gastritis, unspecified, without bleeding (principal)
CPT/HCPCS: 36415; 71045; 80053; 83690; 84484; 85025; 99284; Q0162

== ENCOUNTER 2021-12-24 16:36 | Emergency (ER) | payer OTHER ==
[~2021-12-24] VITALS: Ht 165.1 cm; Wt 86.0 kg
[~2021-12-24 16:36] MED LIST changes: +ONDA4TAB5 MT; +SUCR1TAB30 MT
[2021-12-24] MEDS ORDERED: ONDANSETRON HCL 4MG/2ML INJ IV STA (17:37)
[2021-12-24] MEDS ORDERED: SODIUM CHLORIDE 0.9% 1,000 ML IV ONE (17:45)
[2021-12-24 18:14] LABS: BASOPHILS % 0.9 % (0.0-2.0); EOSINOPHILS % 0.7 % (0.0-5.0); HEMOGLOBIN. 10.4 g/dL (12.0-16.0); MEAN CORPUSCULAR HEMOGLOBIN 20.7 pg (28.0-32.0); MEAN CORPUSCULAR VOLUME 65.8 fL (81.0-99.0); MEAN PLATELET VOLUME 7.9 fl (7.4-10.4); MONOCYTES % 6.5 % (2.0-8.0); NEUTROPHILS % 74.9 % (40.0-76.0); PLATELET 365 x1000/uL (130-400); RED BLOOD CELL COUNT 5.01 mill/uL (4.2-5.4); RED CELL DISTRIBUTION WIDTH 19.9 % (11.6-14.6)
[2021-12-24] MEDS ORDERED: LORAZEPAM 1MG TABLET PO ONE (18:15)
[2021-12-24 18:22] LABS: CHLORIDE 107 mEq/L (98-107)
[2021-12-24] MEDS ORDERED: LORAZEPAM 1MG TABLET PO NR (18:30)
[2021-12-24 18:43] LABS: PLATELET ESTIMATE NORMAL
[2021-12-24] MEDS ORDERED: METOCLOPRAMIDE HCL 10MG/2ML VIAL IV ONE (20:00)
[2021-12-24 21:45] VITALS: BP 140/79
[2021-12-24] MEDS ORDERED: METO10TA3 MT (21:45)
== END 2021-12-24 21:48 | disposition home or self-care (01) ==
LOC: ER 16:36
DX: R11.2 Nausea with vomiting, unspecified (principal); G40.909 Epilepsy, unspecified, not intractable, without status epilepticus; Z90.10 Acquired absence of unspecified breast and nipple; Z86.011 Personal history of benign neoplasm of the brain; Z91.018 Allergy to other foods
CPT/HCPCS: 36415; 80053; 82962; 85025; 93005; 96374; 96375; 99284; J2405; J2765; J7030

== ENCOUNTER 2022-05-03 16:46 | Emergency (ER) | payer OTHER ==
[~2022-05-03] VITALS: Ht 167.6 cm; Wt 89.0 kg
[~2022-05-03 16:46] MED LIST changes: +METO10TA3 MT
[2022-05-03 17:03] VITALS: BP 141/94
== END 2022-05-04 00:54 | disposition left against medical advice (07) ==
LOC: ER 16:46
DX: Z53.21 Procedure and treatment not carried out due to patient leaving prior to being seen by health care provider (principal)

== ENCOUNTER 2022-07-06 14:31 | Emergency (ER) | payer MEDICAID, OTHER ==
[~2022-07-06] VITALS: Ht 165.1 cm; Wt 92.0 kg
[2022-07-06 15:15] VITALS: BP 147/87
[2022-07-06] MEDS ORDERED: IBUPROFEN 400MG TABLET PO ONE (17:30)
[2022-07-06] MEDS ORDERED: IBUP-2028 MT (18:17)
== END 2022-07-06 18:59 | disposition home or self-care (01) ==
LOC: ER 15:41
DX: S93.401A Sprain of unspecified ligament of right ankle, initial encounter (principal); K08.89 Other specified disorders of teeth and supporting structures; Z79.899 Other long term (current) drug therapy; Z86.59 Personal history of other mental and behavioral disorders; Z98.890 Other specified postprocedural states; W01.0XXA Fall on same level from slipping, tripping and stumbling without subsequent striking against object, initial encounter; Y93.89 Activity, other specified; Y92.89 Other specified places as the place of occurrence of the external cause; Y99.8 Other external cause status
CPT/HCPCS: 73610; 99283

== ENCOUNTER 2022-11-09 20:26 | Emergency (ER) | payer MEDICAID, OTHER ==
[~2022-11-09] VITALS: Ht 167.6 cm; Wt 92.0 kg
[~2022-11-09 20:26] MED LIST changes: +IBUP-2028 MT
[2022-11-09 20:59] LABS: BASOPHILS % 0.9 % (0.0-2.0); EOSINOPHILS % 3.6 % (0.0-5.0); HEMATOCRIT. 38.9 % (36.0-48.0); HEMOGLOBIN. 12.7 g/dL (12.0-16.0); LYMPHOCYTES % 33.1 % (20.0-50.0); MEAN CORPUSCULAR HEMOGLOBIN 24.9 pg (28.0-32.0); MEAN CORPUSCULAR VOLUME 76.6 fL (81.0-99.0); MEAN PLATELET VOLUME 8.5 fl (7.4-10.4); MONOCYTES % 7.2 % (2.0-8.0); NEUTROPHILS % 55.2 % (40.0-76.0); PLATELET 320 x1000/uL (130-400); RED BLOOD CELL COUNT 5.08 mill/uL (4.2-5.4); RED CELL DISTRIBUTION WIDTH 17.4 % (11.6-14.6)
[2022-11-09 21:08] LABS: CHLORIDE 106 mEq/L (98-107)
[2022-11-09 21:11] LABS: PROTHROMBIN TIME 10.6 sec (9.6-11.0)
[2022-11-09] MEDS ORDERED: POTASSIUM CHLORIDE 20MEQ TABLET SR PO ONE (21:30)
[2022-11-09] MEDS ORDERED: SODIUM CHLORIDE 0.9% 1,000 ML IV ONE (22:00)
[2022-11-09] MEDS ORDERED: PANTOPRAZOLE SODIUM 40 MG/VIAL IV ONE (22:00)
[2022-11-09] MEDS ORDERED: ACETAMINOPHEN 325MG TABLET PO STA (23:48)
[2022-11-09] MEDS ORDERED: MAGNESIUM/ALUMINUM HYDROXIDE/SIMETHICONE 30ML UDC PO STA (23:48)
[2022-11-09] MEDS ORDERED: DICYCLOMINE 10 MG/5 ML ORAL SYR PO STA (23:48)
[2022-11-09] MEDS ORDERED: ACETAMINOPHEN 325MG TABLET ONE (23:57)
[2022-11-09] MEDS ORDERED: MAGNESIUM/ALUMINUM HYDROXIDE/SIMETHICONE 30ML UDC ONE (23:57)
[2022-11-10 00:02] VITALS: BP 150/72
[2022-11-10] MEDS ORDERED: DICYCLOMINE HCL 10MG CAPSULE PO NR (00:05)
== END 2022-11-10 00:08 | disposition home or self-care (01) ==
LOC: ER 20:26
DX: K92.2 Gastrointestinal hemorrhage, unspecified (principal); E87.6 Hypokalemia; Z98.890 Other specified postprocedural states; Z79.899 Other long term (current) drug therapy
CPT/HCPCS: 36415; 74176; 80053; 83690; 85025; 85610; 86850; 86900; 86901; 93005; 99285; J7030

== ENCOUNTER 2023-05-30 10:22 | Emergency (ER) | payer OTHER, MEDICAID ==
[~2023-05-30] VITALS: Ht 167.6 cm; Wt 68.0 kg
[2023-05-30 10:25] VITALS: O2SAT 100
[2023-05-30] MEDS ORDERED: SODIUM CHLORIDE 0.9% 1,000 ML IV ONE (10:45)
[2023-05-30] MEDS ORDERED: ONDANSETRON HCL 4MG/2ML INJ IV ONE (10:45)
[2023-05-30] MEDS ORDERED: LORAZEPAM 2MG/ML CPJ IV ONE (10:45)
[2023-05-30] MEDS ORDERED: LEVETIRACETAM 1000MG PREMIX 100 ML IV ONE (10:45)
[2023-05-30 11:38] LABS: EOSINOPHILS % 0.3 % (0.0-5.0); HEMATOCRIT. 41.4 % (36.0-48.0); HEMOGLOBIN. 13.3 g/dL (12.0-16.0); LYMPHOCYTES % 24.9 % (20.0-50.0); MEAN CORPUSCULAR HEMOGLOBIN 26.5 pg (28.0-32.0); MEAN CORPUSCULAR HGB CONC 32.1 g/dL (31.0-37.0); MEAN CORPUSCULAR VOLUME 82.4 fL (81.0-99.0); MEAN PLATELET VOLUME 8.6 fl (7.4-10.4); MONOCYTES % 3.6 % (2.0-8.0); NEUTROPHILS % 70.2 % (40.0-76.0); PLATELET 300 x1000/uL (130-400); RED BLOOD CELL COUNT 5.02 mill/uL (4.2-5.4)
[2023-05-30 11:40] LABS: ALANINE AMINOTRANSFERASE 7 IU/L (10-49); ALBUMIN 4.4 g/dL (3.2-4.8); ASPARTATE AMINOTRANSFERASE 16 IU/L (<34); BILIRUBIN TOTAL 0.4 mg/dL (0.1-1.0); CALCIUM 8.5 mg/dL (8.7-10.4); CARBON DIOXIDE 22 mEq/L (21-32); CHLORIDE 104 mEq/L (98-107); CREATININE 0.9 mg/dL (0.6-1.0); ETHANOL BLOOD 87 mg/dL (<10); GLUCOSE 85 mg/dL (70-105); POTASSIUM 4.3 mEq/L (3.5-5.1); PROTEIN TOTAL 6.8 g/dL (6.0-8.3); SODIUM 138 mEq/L (136-145); THYROID STIMULATING HORMONE 2.12 uIU/mL (0.55-4.78); UREA NITROGEN BLOOD 10 mg/dL (9-23)
[2023-05-30 11:45] LABS: CARBAMAZEPINE < 0.4 ug/mL (4-12); PHENOBARBITAL < 3.0 ug/mL (15.0-40.0); PHENYTOIN < 2.0 ug/mL (10-20); TROPONIN I HIGH SENSITIVITY < 4 ng/L (3.0-34); VALPROIC ACID < 3.0 ug/mL (50-100)
[2023-05-30] MEDS ORDERED: LORAZEPAM 4MG/ML VIAL IV NR (12:00)
[2023-05-30 12:12] LABS: HCG SCREEN NEGATIVE
[2023-05-30 12:25] VITALS: BP 129/87; PULSE 85; RESP 13; TEMP 98.3
== END 2023-05-30 14:54 | disposition home or self-care (01) ==
LOC: ER 14:53
DX: S09.90XA Unspecified injury of head, initial encounter (principal); F10.129 Alcohol abuse with intoxication, unspecified; R55 Syncope and collapse; I10 Essential (primary) hypertension; Z90.710 Acquired absence of both cervix and uterus; Z98.890 Other specified postprocedural states; Z90.13 Acquired absence of bilateral breasts and nipples; W18.30XA Fall on same level, unspecified, initial encounter; Y93.89 Activity, other specified; Y92.89 Other specified places as the place of occurrence of the external cause; Y99.8 Other external cause status
CPT/HCPCS: 80053; 80320; 80156; 80185; 84703; 80184; 84443; 80165; 85025; 84484; 36415; 71045; 70450; 72125; 93005; 96365; 96366; 96375; 99285; J1953; J2405; J7030; Z7610; G0480

== ENCOUNTER 2023-06-19 14:45 | Emergency (ER) | payer MEDICAID, OTHER ==
[~2023-06-19] VITALS: Ht 167.6 cm; Wt 72.0 kg
[2023-06-19 14:57] VITALS: BP 140/105; PULSE 94; RESP 20; TEMP 98.4; O2SAT 98
[2023-06-19 15:30] LABS: CLARITY URINE CLOUDY (CLEAR); COLOR URINE YELLOW (YELLOW); GLUCOSE URINE NEGATIVE (NEGATIVE); KETONES URINE TRACE (NEGATIVE); LEUKOCYTE ESTERASE URINE NEGATIVE (NEGATIVE); NITRITE URINE NEGATIVE (NEGATIVE); OCCULT BLOOD URINE NEGATIVE (NEGATIVE); PH URINE 5.5 (4.5-8.0); PROTEIN URINE NEGATIVE (NEGATIVE)
[2023-06-19 17:36] LABS: AMORPHOUS SEDIMENT URINE 1+ /lpf; BACTERIA URINE 2+; RBC URINE NONE SEEN /hpf (0-2); SQUAMOUS EPITHELIAL CELL URINE 3+ /lpf (RARE/1+); WBC URINE 0-2 /hpf (0-2)
[2023-06-19 20:23] LABS: *AMPHETAMINES SCREEN URINE NEGATIVE (NEGATIVE); *BARBITURATES SCREEN URINE NEGATIVE (NEGATIVE); *BENZODIAZEPINES SCREEN URINE PRESUMPTIVE POSITIVE (NEGATIVE); *COCAINE SCREEN URINE NEGATIVE (NEGATIVE); CANNABINOID URINE SCREEN PRESUMPTIVE POSITIVE (NEGATIVE); ECSTASY MDMA SCREEN URINE NEGATIVE (NEGATIVE); METHADONE URINE SCREEN Neg (NEGATIVE); OPIATES URINE SCREEN NEGATIVE (NEGATIVE); PHENCYCLIDINE URINE SCREEN NEGATIVE (NEGATIVE)
== END 2023-06-19 19:19 | disposition home or self-care (01) ==
LOC: ER 14:45
DX: R55 Syncope and collapse (principal); R42 Dizziness and giddiness; I10 Essential (primary) hypertension; Z90.710 Acquired absence of both cervix and uterus; Z79.899 Other long term (current) drug therapy
CPT/HCPCS: 71045; 80305; 81003; 93005; 99285

== ENCOUNTER 2023-09-13 14:51 | Emergency (ER) | payer OTHER ==
[~2023-09-13] VITALS: Ht 165.1 cm; Wt 65.0 kg
[2023-09-13 15:04] VITALS: BP 149/79; PULSE 106; RESP 18; TEMP 98.8; O2SAT 99
== END 2023-09-13 17:25 | disposition left against medical advice (07) ==
LOC: ER 14:51
DX: F41.9 Anxiety disorder, unspecified (principal); R55 Syncope and collapse; E11.9 Type 2 diabetes mellitus without complications; I10 Essential (primary) hypertension; J45.909 Unspecified asthma, uncomplicated; Z79.82 Long term (current) use of aspirin; Z86.59 Personal history of other mental and behavioral disorders; Z98.890 Other specified postprocedural states; Z90.10 Acquired absence of unspecified breast and nipple; Z90.89 Acquired absence of other organs
CPT/HCPCS: 99283

== ENCOUNTER 2025-03-28 16:30 | Emergency (ER) | payer MEDICAID, OTHER ==
[~2025-03-28] VITALS: Ht 165.1 cm; Wt 84.0 kg
[~2025-03-28 16:30] MED LIST changes: +GABA-1180 PO; -GABA-532 PO; +ONDA-239 PO; -ONDA4TAB11 PO
[2025-03-28 16:42] VITALS: TEMP 37.1; O2SAT 98
[2025-03-28 18:04] VITALS: TEMP 98.8
[2025-03-28] MEDS: ACETAMINOPHEN 325MG TABLET PO ONE (18:04)
[2025-03-28] MEDS: CLONIDINE 0.1MG TABLET PO ONE (18:04)
[2025-03-28] MEDS ORDERED: AMLO5TAB88 MT (19:52)
[2025-03-28 20:07] VITALS: BP 116/79; PULSE 84; RESP 14; O2SAT 100
== END 2025-03-28 20:16 | disposition home or self-care (01) ==
LOC: ER 16:30
DX: G44.209 Tension-type headache, unspecified, not intractable (principal); I10 Essential (primary) hypertension; F41.9 Anxiety disorder, unspecified; J45.909 Unspecified asthma, uncomplicated; E11.9 Type 2 diabetes mellitus without complications; Z79.899 Other long term (current) drug therapy; Z90.10 Acquired absence of unspecified breast and nipple; Z90.710 Acquired absence of both cervix and uterus
CPT/HCPCS: 99284